=== PATIENT | male | born 1985 | race Two or more races ===

== ENCOUNTER 2022-07-31 21:46 | Emergency (ER) | payer OTHER ==
[~2022-07-31] VITALS: Ht 180.3 cm; Wt 77.1 kg
[2022-07-31 22:16] VITALS: BP 128/79
--- NOTE | 2022-07-31 23:51 | NUR ---
PT IS MEDICALLY CLEARED FOR BOOKING AND RELEASED UNDER THE CARE OF [employer] OFFICERS. PT IS IN STABLE CONDITION AND AMBULATORY ON STEADY GAIT. PT LEFT ON HAND CUFFS
== END 2022-07-31 23:51 ==
LOC: EDBD 21:49 → ER 21:49
DX: Z02.89 Encounter for other administrative examinations (principal); Z20.822 Contact with and (suspected) exposure to COVID-19
CPT/HCPCS: 99283; 87426; C9803